=== PATIENT | female | born 1960 | race Caucasian/White ===

== ENCOUNTER 2022-11-17 13:58 | Outpatient (REF) | payer MEDICAID, SELFPAY | END 2022-11-17 13:59 | disposition home or self-care (01) | LOC: HO.BBR 13:58 | PROVIDERS: Visit Provider Internal Medicine Hematology & Oncology | DX: Z13.89 Encounter for screening for other disorder (principal) ==

== ENCOUNTER 2022-11-24 15:01 | Outpatient (REF) | payer MEDICAID, SELFPAY | END 2022-11-24 15:02 | disposition home or self-care (01) | LOC: HO.BBR 15:01 | PROVIDERS: Visit Provider Internal Medicine Hematology & Oncology | DX: Z13.89 Encounter for screening for other disorder (principal) ==

== ENCOUNTER 2022-12-02 13:07 | Outpatient (REF) | payer MEDICAID, SELFPAY | END 2022-12-02 13:08 | disposition home or self-care (01) | LOC: HO.BBR 13:07 | PROVIDERS: Visit Provider Internal Medicine Hematology & Oncology | DX: Z13.89 Encounter for screening for other disorder (principal) ==

== ENCOUNTER 2022-12-22 15:06 | Outpatient (REF) | payer MEDICAID, SELFPAY | END 2022-12-22 15:07 | disposition home or self-care (01) | LOC: HO.BBR 15:06 | PROVIDERS: Visit Provider Internal Medicine Hematology & Oncology | DX: Z13.89 Encounter for screening for other disorder (principal) ==

== ENCOUNTER 2023-01-04 16:12 | Outpatient (REF) | payer MEDICAID, SELFPAY | END 2023-01-04 16:13 | disposition home or self-care (01) | LOC: HO.BBR 16:12 | PROVIDERS: Visit Provider Internal Medicine Hematology & Oncology | DX: Z13.89 Encounter for screening for other disorder (principal) ==

== ENCOUNTER 2023-01-12 14:05 | Outpatient (REF) | payer MEDICAID, SELFPAY | END 2023-01-12 14:06 | disposition home or self-care (01) | LOC: HO.BBR 14:05 | PROVIDERS: Visit Provider Internal Medicine Hematology & Oncology | DX: Z13.89 Encounter for screening for other disorder (principal) ==

== ENCOUNTER 2023-02-17 15:06 | Outpatient (REF) | payer MEDICAID, SELFPAY | END 2023-02-17 15:07 | disposition home or self-care (01) | LOC: HO.BBR 15:06 | PROVIDERS: Visit Provider Internal Medicine Hematology & Oncology | DX: Z13.89 Encounter for screening for other disorder (principal) ==

== ENCOUNTER 2023-03-05 14:00 | Outpatient (REF) | payer MEDICAID, SELFPAY | END 2023-03-05 14:01 | disposition home or self-care (01) | LOC: HO.BBR 14:00 | PROVIDERS: Visit Provider Internal Medicine Hematology & Oncology | DX: Z13.89 Encounter for screening for other disorder (principal) ==

== ENCOUNTER → 2023-03-05 14:54 | Outpatient (BNV) | payer MEDICAID, SELFPAY | PROVIDERS: PCP Physician Assistant Medical; Visit Provider Internal Medicine | DX: E83.110 Hereditary hemochromatosis (principal) | CPT/HCPCS: 99203; 99213; 99214; G2211 ==

== ENCOUNTER 2023-03-24 15:07 | Outpatient (REF) | payer MEDICAID, SELFPAY | END 2023-03-24 15:08 | disposition home or self-care (01) | LOC: HO.BBR 15:07 | PROVIDERS: PCP Physician Assistant Medical; Visit Provider Internal Medicine | DX: Z13.89 Encounter for screening for other disorder (principal) ==

== ENCOUNTER 2023-04-09 11:34 | Outpatient (REF) | payer MEDICAID, SELFPAY | END 2023-04-09 11:35 | disposition home or self-care (01) | LOC: HO.BBR 11:34 | PROVIDERS: PCP Physician Assistant Medical; Visit Provider Internal Medicine | DX: Z13.89 Encounter for screening for other disorder (principal) ==

== ENCOUNTER 2023-04-23 15:05 | Outpatient (REF) | payer MEDICAID, SELFPAY | END 2023-04-23 15:06 | disposition home or self-care (01) | LOC: HO.BBR 15:05 | PROVIDERS: PCP Physician Assistant Medical; Visit Provider Internal Medicine | DX: Z13.89 Encounter for screening for other disorder (principal) ==

== ENCOUNTER 2023-05-13 14:03 | Outpatient (REF) | payer MEDICAID, SELFPAY | END 2023-05-13 14:04 | disposition home or self-care (01) | LOC: HO.BBR 14:03 | PROVIDERS: PCP Physician Assistant Medical; Visit Provider Internal Medicine | DX: Z13.89 Encounter for screening for other disorder (principal) ==

== ENCOUNTER 2023-05-27 14:03 | Outpatient (REF) | payer MEDICAID, SELFPAY | END 2023-05-27 14:04 | disposition home or self-care (01) | LOC: HO.BBR 14:03 | PROVIDERS: PCP Physician Assistant Medical; Visit Provider Internal Medicine | DX: Z13.89 Encounter for screening for other disorder (principal) ==

== ENCOUNTER 2023-06-18 12:09 | Outpatient (REF) | payer MEDICAID, SELFPAY | END 2023-06-18 12:10 | disposition home or self-care (01) | LOC: HO.BBR 12:09 | PROVIDERS: PCP Physician Assistant Medical; Visit Provider Internal Medicine | DX: Z13.89 Encounter for screening for other disorder (principal) ==

== ENCOUNTER 2023-07-09 14:09 | Outpatient (REF) | payer MEDICAID, SELFPAY | END 2023-07-09 14:10 | disposition home or self-care (01) | LOC: HO.BBR 14:09 | PROVIDERS: PCP Physician Assistant Medical; Visit Provider Internal Medicine | DX: Z13.89 Encounter for screening for other disorder (principal) ==

== ENCOUNTER 2023-07-27 14:06 | Outpatient (REF) | payer MEDICAID, SELFPAY | END 2023-07-27 14:07 | disposition home or self-care (01) | LOC: HO.BBR 14:06 | PROVIDERS: PCP Physician Assistant Medical; Visit Provider Internal Medicine | DX: Z13.89 Encounter for screening for other disorder (principal) ==

== ENCOUNTER 2023-08-11 14:04 | Outpatient (REF) | payer MEDICAID, SELFPAY | END 2023-08-11 14:05 | disposition home or self-care (01) | LOC: HO.BBR 14:04 | PROVIDERS: PCP Physician Assistant Medical; Visit Provider Internal Medicine | DX: Z13.89 Encounter for screening for other disorder (principal) ==

== ENCOUNTER 2023-09-14 13:51 | Outpatient (REF) | payer MEDICAID, SELFPAY | END 2023-09-14 13:52 | disposition home or self-care (01) | LOC: HO.BBR 13:51 | PROVIDERS: PCP Physician Assistant Medical; Visit Provider Internal Medicine | DX: Z13.89 Encounter for screening for other disorder (principal) ==

== ENCOUNTER 2023-10-11 15:04 | Outpatient (REF) | payer MEDICAID, SELFPAY | END 2023-10-11 15:05 | disposition home or self-care (01) | LOC: HO.BBR 15:04 | PROVIDERS: PCP Physician Assistant Medical; Visit Provider Internal Medicine | DX: Z13.89 Encounter for screening for other disorder (principal) ==

== ENCOUNTER 2023-11-16 14:05 | Outpatient (REF) | payer MEDICAID, SELFPAY | END 2023-11-16 14:06 | disposition home or self-care (01) | LOC: HO.BBR 14:05 | PROVIDERS: PCP Physician Assistant Medical; Visit Provider Internal Medicine | DX: Z13.89 Encounter for screening for other disorder (principal) ==

== ENCOUNTER 2024-01-26 13:17 | Outpatient (REF) | payer MEDICAID, SELFPAY | END 2024-01-26 13:18 | disposition home or self-care (01) | LOC: HO.BBR 13:17 | PROVIDERS: PCP Physician Assistant Medical; Visit Provider Internal Medicine | DX: Z13.89 Encounter for screening for other disorder (principal) ==

== ENCOUNTER 2024-04-28 09:10 | Outpatient (REF) | payer MEDICAID, SELFPAY | END 2024-04-28 09:11 | disposition home or self-care (01) | LOC: HO.BBR 09:10 | PROVIDERS: PCP Physician Assistant Medical; Visit Provider Internal Medicine | DX: Z13.89 Encounter for screening for other disorder (principal) ==

== ENCOUNTER 2024-06-16 15:09 | Outpatient (REF) | payer MEDICAID, SELFPAY | END 2024-06-16 15:10 | disposition home or self-care (01) | LOC: HO.BBR 15:09 | PROVIDERS: Visit Provider Internal Medicine | DX: Z13.89 Encounter for screening for other disorder (principal) ==

== ENCOUNTER 2024-07-17 15:01 | Outpatient (REF) | payer MEDICAID, SELFPAY ==
--- OUTSIDE RECORDS SUMMARY | 2024-07-17 17:37 | XMS_ITS | Clinical Summary ---
Author Organization [employer] Address [address] [facility] 7t [place] [address] Care Team Providers Care Naval Engineer Name Role Phone Unavailable Primary Care Provider Unavailabl e Allergies Active Allergy Reactions Criticality Noted Date Comments Latex Hives 09/23/2022 Medications No known medications Active Problems Problem Noted Date Diagnosed Date Dental caries 09/23/2022 Dental abscess 09/23/2022 Social History Tobacco Use Types Packs/Day Years Used Date Smoking Tobacco: Never Passive Smoke Exposure: Never Smokeless Tobacco: Never Tobacco Cessation:Counseling Given: No Alcohol Use Standard Drinks/Week Comments Never 0 (1 standard drink = 0.6 oz pur e alcohol) Comments Unknown Sex and Gender Information Value Date Recorded Sex Assigned at Female 09/23/2022 8:43 AM EDT Legal Sex Female 8:42 AM EDT Gender Identity Female 09/23/2022 8:43 AM EDT Sexual Orientation Don't know 09/23/2022 8: 43 AM EDT Plan of Treatment Health Maintenance Due Date Last Done Comments CT Colonography 1962 Colonoscopy 1962 Colorectal Cancer Screening 1962 Dental Oral Exam 1962 Dental Prophylaxis 1962 Dental X-Ray: Bitewings 1962 Depression Screening 1962 FIT DNA/Cologuard 1962 FIT 1962 FOBT 1962 HIV Screening 1962 SDOH Screening 1962 Sigmoidoscopy 1962 Alcohol/Substance Use Screening 1974 Hepatitis C Screening 01/12/1980 Pap Smear 1983 Cervical Cancer Screening 01/12/1992 HPV/Cotest 01/12/1992 Mammogram 2002 Zoster Vaccines (1 of 2) 01/12/2012 Pneumococcal Vaccine: 50+ Years (2 of 2 - PCV) 11/25/2021 11/25/2020 RSV Patients and Patients Aged 60 years or older (1 - Risk 60-74 years 1-dose series) 2022 Tobacco Screening 09/24/2023 09/23/2022 COVID-19 Vaccine ( - season) 2023 01/06/2022, 08/20/2021, 02/13/2021, Additional history exists Influenza Vaccine (#1) 2023 , 03/19/2018, 02/12/2011, Additional history exists DTaP/Tdap/Td Vaccines (2 - Td or Tdap) 08/28/2025 08/29/2015 Dental X-Ray: Full Mouth 09/24/2025 09/23/2022 HIB Vaccines Aged Out No longer eligi ble based on patient's age to complete this topic HPV Vaccines Aged Out No longer eligi ble based on patient's age to complete this topic Hepatitis A Vaccines Aged Out No long er eligible based on patient's age to complete this topic Hepatitis B Vaccines Aged Out No long er eligible based on patient's age to complete this topic IPV Vaccines Aged Out No longer eligi ble based on patient's age to complete this topic Meningococcal Vaccine Aged Out No anam edgardo eligible based on patient's age to complete this topic RSV under 20 months Aged Out No longe r eligible based on patient's age to complete this topic Rotavirus Vaccines Aged Out No longer eligible based on patient's age to complete this topic Procedures Procedure Name Priority Date/Time Associated Diagnosis Comments PANORAMIC RADIOGRAPHIC IMAGE Routine 09/23/2022 11:30 AM EDT from Last 3 Months or Most Recently Relevant to Health Maintenance Insurance [facility] MEDICAID STAND ADULT
--- OUTSIDE RECORDS SUMMARY | 2024-07-17 17:37 | XMS_ITS | Encounter Summary ---
Author Organization [employer] Address 75 [facility] 7t [place] [address] Care Team Providers Care Homeopathic Doctor Name Role Phone Unavailable Primary Care Provider Unavailabl e Reason for Visit * Reason Onset Date Comments medical clearance 10/20/2022 Encounter Details Date Type Department Care Team (Late st Contact Info) Description 10/20/2022 Telephone C ADULT DENTAL [address] [place], [place] [phone] Eric Mena DDS [address] [place], [place] [phone] medical clearance Social History Tobacco Use Types Packs/Day Years Used Date Smoking Tobacco: Never Passive Smoke Exposure: Never Smokeless Tobacco: Never Alcohol Use Standard Drinks/Week Comments Never 0 (1 standard drink = 0.6 oz pur e alcohol) Comments Unknown Sex and Gender Information Value Date Recorded Sex Assigned at Female 09/23/2022 8:43 AM EDT Legal Sex Female 8:42 AM EDT Gender Identity Female 09/23/2022 8:43 AM EDT Sexual Orientation Don't know 09/23/2022 8: 43 AM EDT COVID-19 Exposure Response Date Recorded In the last 10 days, have yo u been in contact with someone who was confirmed or suspected to have Coronavirus/COVID-19? No / Unsure 09/23/2022 11:14 AM EDT documented as of this encounter Miscellaneous Notes * Telephone Encounter - Madison Tipton - 10/26/2022 2:34 PM EDT Alka from Dr. Devine office calling in questioning what the situation is with patient medical clearance seeing that they explained they sent in a new one with the information needed. I did explain that a medical clearance was still not scanned in the chart other than the first one that had beensent in and that the first one sent in was not fully completed. Shikha had called in a little while before and it was explained to her that she had been referred out perr provider due to her condition. She contacted Dr. Devine office asking them why they hadn't sent over the medical clearance and they contacted us asking what was going on with it not being clear to the patient. The medical clearance, if they sent another one is not scanned in so on our end there is nothing more we can say on our end at [facility]. She did want to speak directly to the office but upon calling manager front it was recommended for us to speak with provider. They would like to hear from you regarding patient case. Dr. Devine office [phone] Alka Galeana * Telephone Encounter - Madison Tipton - 10/22/2022 2:05 PM EDT Pt called in to inform 2 days a new medical clearance form should have been sent in from provider .Pt checking in if it has been received ? And requesting a new antibiotic while they wait for their appt . * Telephone Encounter - Lizbeth Astudillo - 10/20/2022 2:18 PM EDT Shikha Kaufmanramilanadeen 1960 Patient called in and stated bar staff could not read medicalclearance and asked if it can be resent I did fax it over again and patient also stated that she isstill having pain and stated that medication that was given to her is not helping and wanted to know if she can get something else sent to the pharmacy please advise . documented in this encounter Plan of Treatment Not on file documented as of this encounter Visit Diagnoses Not on filedocumented in this encounter
--- OUTSIDE RECORDS SUMMARY | 2024-07-17 17:37 | XMS_ITS | Encounter Summary ---
Author Organization [employer] Address 75 [facility] 7t [place] [address] Care Team Providers Care Rotary Drier Operator Name Role Phone Unavailable Primary Care Provider Unavailabl e Reason for Visit * Reason Onset Date Comments Appointment 09/23/2022 Encounter Details Date Type Department Care Team ([facility] st Contact Info) Description 09/23/2022 Telephone [facility] ADULT DENTAL [address] [place] [address] Eric Mena DDS [address] [place], [place] [phone] Appointment Social History Tobacco Use Types Packs/Day Years [...] encounter Miscellaneous Notes * Telephone Encounter - Lizbeth Astudillo - 10/07/2022 11:35 AM EDT Shikha Nelson 1960 Patient called in and stated that the Tylenol is not helping forthe pain and wanted to know if something else can be sent to the pharmacy please advise. * Telephone Encounter - Lizbeth Astudillo - 09/23/2022 12:34 PM EDT Shikha corrales 1960 patient was seen on 09/23/2022 and was given ibuprofen 600 and patient cant take it because of bleeding disorder please advise for something else documented in this encounter Plan of Treatment Not on file documented as of this encounter Visit Diagnoses Not on filedocumented in this encounter
== END 2024-07-17 15:02 | disposition home or self-care (01) ==
LOC: HO.BBR 15:01
PROVIDERS: Visit Provider Internal Medicine
DX: Z13.89 Encounter for screening for other disorder (principal)

== ENCOUNTER 2024-08-31 07:49 | Outpatient (REF) | payer MEDICAID, SELFPAY ==
--- OUTSIDE RECORDS SUMMARY | 2024-08-31 07:51 | XMS_ITS | Encounter Summary ---
Author Organization [employer] Address [address] [facility] 7t [place] [address] Care Team Providers Care Metalsmith Name Role Phone Unavailable Primary Care Provider Unavailabl e Reason for Visit * Reason Onset Date Comments Appointment 09/23/2022 Encounter Details Date Type Department Care Team ([facility] st Contact Info) Description 09/23/2022 Telephone [facility] ADULT DENTAL [address] [place] [address] rEic Mena DDS [address] [place], [place] [phone] Appointment Social History Tobacco Use Types Packs/Day [...]
[2024-09-05 19:33] LABS: Testosterone, Free 1.2 pg/mL (0.1-6.4); Testosterone, Total 16 ng/dL (2-45)
== END 2024-08-31 07:50 | disposition home or self-care (01) ==
LOC: HO.LAB 07:49
PROVIDERS: Visit Provider Physician Assistant Medical
DX: N95.1 Menopausal and female climacteric states (principal)
CPT/HCPCS: 36415; 84402; 84403

== ENCOUNTER 2024-10-12 15:03 | Outpatient (REF) | payer MEDICAID, SELFPAY ==
--- OUTSIDE RECORDS SUMMARY | 2024-10-12 15:09 | XMS_ITS | Encounter Summary ---
Author Organization [employer] Address [address] [facility] 7t [place] [address] Care Team Providers Care Hair Preparer Name Role Phone Unavailable Primary Care Provider Unavailabl e Reason for Visit * Reason Onset Date Comments Appointment 09/23/2022 Encounter Details Date Type Department Care Team ([facility] st Contact Info) Description 09/23/2022 Telephone [facility] ADULT DENTAL [address] [place] [address] Eric Mena DDS [address] [place], [place] [phone] Appointment Social History Tobacco Use Types Packs/Day [...]
== END 2024-10-12 15:04 | disposition home or self-care (01) ==
LOC: HO.BBR 15:03
PROVIDERS: PCP Physician Assistant Medical; Visit Provider Internal Medicine
DX: Z13.89 Encounter for screening for other disorder (principal)

== ENCOUNTER 2024-12-01 15:41 | Outpatient (AMB) | payer MEDICAID, SELFPAY ==
--- OUTSIDE RECORDS SUMMARY | 2024-12-01 15:44 | XMS_ITS | Encounter Summary ---
Author Organization [facility] Address [address] [place] [address] Phone Care Team Providers Care Skein Yarn Dyer Helper Name Role Phone Cabrera Gaston MD Primary Care Provider Cabrera Gaston MD Unavailable [phone] Irlanda Barber DPM Unavailable Unavailable Edith Church MD Unavailable [phone] Nicolás Salter MD Unavailable [phone] Silvio Olivares Artem DO Unavailable [phone] Becca Harley Unavailable [phone] Cabrera Gaston MD Unavailable [phone] Becca Harley Primary Care Provider [phone] Jignesh Akbar MD Unavailable Encounter Details Date Type Department Care Team (Late st Contact Info) Description 06/07/2018 Transcribe [facility] [address] [place], [place] [phone] Jing Santos PA [address] [place], [place] [phone] [email or web address] Acute severe exacerbation of asthma (Primary Dx) Social History Tobacco Use Types Packs/Day Years Used Date Smoking Tobacco: Never Assessed Comments Unknown Sex and Gender Information Value Date Recorded Sex Assigned at Not on file Legal Sex Female 9:45 PM EDT Gender Identity Female 02/02/2023 4:51 PM EDT Sexual Orientation Straight 02/02/2023 4: 51 PM EDT documented as of this encounter Plan of Treatment Not on file documented as of this encounter Visit Diagnoses Diagnosis Acute severe exacerbation of asthma- Primary documented in this encounter Care Teams Skein Yarn Dyer Helper Relationship Specialty Start Date End Date Cabrera Gaston MD [email or web address] PCP - General 01/19/17 10/06/22 Becca Harley PA [address] [place] [address] PCP - General Physician Risk Management Manager 10/07/22 Cabrera Gaston MD [email or web address] Historical LMR Provider 01/19/17 Irlanda Barber DPM [address] [place] [address] Historical LMR Provider 01/19/1704/12/21 Edith Church MD [address] [place] [address] Historical LMR Provider 01/19/17 2 Nicolás Salter MD [address] [place] [id number] [email or web address] Historical LMR Provider 01/19/17 04/12/21 Silvio Olivares DO [address] [place] [address] [email or web address] Primary Oncologist Hematology and Oncology 01/19/17 Becca Harley PA [address] [place] [address] [place] [address] Service Technician 08/17/18 Cabrera Gaston MD [address] [place] [address] [email or web address] Insurance Assigned Provider 11/06/18 12/12/22 Jignesh Akbar MD [address] [address] [email or web address] Primary Oncologist Hematology and Oncology 12/28/22 documented as of this encounter Additional Source Comments The information contained in this document represents components of the legal health record. It is not the complete legal health record.[facility]
--- OUTSIDE RECORDS SUMMARY | 2024-12-01 15:44 | XMS_ITS | Encounter Summary ---
Author Organization [employer] Address [address] [facility] 7t [place] [address] Care Team Providers Care Seed Corn Manager Production Name Role Phone Unavailable Primary Care Provider Unavailabl e Reason for Visit * Reason Onset Date Comments Appointment 09/23/2022 Encounter Details Date Type Department Care Team ([facility] st Contact Info) Description 09/23/2022 Telephone [facility] ADULT DENTAL [address] [place] [address] Eric Mena DDS [address] [place], [place] [phone] Appointment Social History Tobacco Use Types Packs/Day [...]
--- OUTSIDE RECORDS SUMMARY | 2024-12-01 15:44 | XMS_ITS | Encounter Summary ---
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 Procedures Adult Echo TTE Becca Harley PA [address] [place] [address] Phone: tel: fax: Referral ID Status Reason Start Date Expiration Date V isits Requested Visits Authorized [id number] New Request 08/30/2024 1 1 Encounter Details Date Type Department Care Team (Latest Contact Info) Description 08/30/2024 Transcribe Orders Virtual Department [address] [place] [address] Becca Harley PA [address] [place] [address] Hypermobile Tati-Danlos syndrome (Primary Dx) Social History Tobacco Use Types Packs/Day Years Used Date Smoking Tobacco: Former Smokeless Tobacco: Never Comments:Smoked very little (1-2 cigarettes/day) for abaout 2 years Alcohol Use Standard Drinks/Week Comments Yes 0 (1 standard drink = 0.6 oz pur e alcohol) occasionally Education Answer Date Recorded Are you interested in more education? Not on diomedes e 07/31/2022 Are you concerned about learning? Not on file 07/31/2022 No 07/31/2022 No 07/31/2022 Digital Access Answer Date Recorded No 08/29/2022 No 08/29/2022 Reliable internet access at home? Not on file 08/29/2022 Device with a working camera? Not on file Comments No Sex and Gender Information Value Date Recorded Sex Assigned at Not on file Legal Sex Female 9:45 PM EDT Gender Identity Female 02/02/2023 4:51 PM EDT Sexual Orientation Straight 02/02/2023 4: 51 PM EDT documented as of this encounter Plan of Treatment Scheduled Orders Name Type Priority Associated Diagnoses Orde r Schedule Adult Echo TTE Echocardiography Routine Hypermobile Tati-Danlos syndrome Expected: 08/30/2024, Expires: 08/30/2025 documented as of this encounter Visit Diagnoses Diagnosis Hypermobile Tati-Danlos syndrome- Primary documented in this encounter Care Teams Jig Borer Relationship Specialty Start Date End Date Becca Harley PA [address] [place] [address] PCP - General Physician Steel Welder 10/07/22 Cabrera Gaston MD [email or web address] Historical LMR Provider 01/19/17 Silvio Olivares DO [address] [place] [address] [email or web address] Primary Oncologist Hematology and Oncology 01/19/17 Becca Harley PA [address] [place] [address] [place] [address] Vegetable Packer 08/17/18 Jignesh Akbar MD [address] [place] [address] [email or web address] Primary Oncologist Hematology and Oncology 12/28/22 documented as of this encounter Additional Source Comments The information contained in this document represents components of the legal health record. It is not the complete legal health record.[facility]
--- OUTSIDE RECORDS SUMMARY | 2024-12-01 15:44 | XMS_ITS | Encounter Summary ---
Author Organization [facility] Address [address] [place] [address] Phone Care Team Providers Care Manufacturing Plant Technician Name Role Phone Cabrera Gaston MD Primary Care Provider [phone] Cabrera Gaston MD Unavailable [phone] Irlanda Barber DPM Unavailable Unavailable Edith Church MD Unavailable [phone] Nicolás Salter MD Unavailable [phone] Silvio Olivares Artem DO Unavailable [phone] Becca Harley Unavailable [phone] Cabrera Gaston MD Unavailable [phone] Becca Harley Primary Care Provider [phone] Jignesh Akbar MD Unavailable Encounter Details Date Type Department Care Team (Latest Contact Info) Description 06/07/2018 Transcribe Orders Virtual Department [address] [place], [place] [phone] Becca Harley PA [address] [place] [address] Asthma with acute exacerbation, unspecified asthma severity, unspecified whether persistent (Primary Dx) Social History Tobacco Use Types [...] on file documented as of this encounter Results * Pulmonary Function Test Reason for Exam: Asthma; Type of PFT Test: Spirometry with bronchodilator, Spirometry while seated and supine, Lung Volumes, DLCO; Performing Location: [facility] (07/18/2018 1:43 PMEDT) FEV1 liters FVC liters FEV1/FVC % TLC liters DLCO ml/mmHg sec Anatomical Region Laterality Modality Other Impressions 07/18/2018 1:43 PM EDT PULMONARY FUNCTION STUDIES Full pulmonary function studies were performed on this 58 y.o. year-old female for evaluation of asthma. Review of the medical record reveals that the patient has a minimal prior smoking history. Prior pulmonary function studies are not available for comparison. SPIROMETRY: The FEV1 is normal at 2.48 L or 101 % predicted. The FVC is normal at 3.98 L or 121 % predicted. The FEV1/FVC ratio is impaired at there is no significant [id number] %. After the administration of a bronchodilator agent, there is no significant change. FLOW-VOLUME LOOPS: Evaluation of the flow-volume loops reveals mild flattening in the peak expiratory as well as inspiratory flows with no change following bronchodilator administration. LUNG VOLUME MEASUREMENTS BY PLETHYSMOGRAPHY: The total lung capacity is mildly elevated at 6.15 L or 120 % predicted. The functional residual capacity is elevated at 3.97 L or 129 % predicted. Residual volume normal at 2.17 L or 115% predicted. Airway resistance measurements mildly elevated. DIFFUSION CAPACITY: The diffusion capacity is normal at 22.2 mL/mmHg sec or 116 % predicted. COMPARISON TO PRIOR STUDIES: None available. Resting oxygen saturation is 96 % on room air. IMPRESSION: Abnormal pulmonary function studies with mild fixed airflow obstruction with mild hyperinflation but preserved diffusion capacity. No bronchodilator response seen. Given flow volume loop appearance, findings may suggest chronic airway remodeling versus alternative diagnosis as a cause of physiologic COPD. Clinical and radiographic correlation advised. Becca FU PFT ORDERABLES Final Resu lt documented in this encounter Visit Diagnoses Diagnosis Asthma with acute exacerbation, unspecified asthma severity, unspecified whether persistent- Primary Asthma with acute exacerbation, unspecified asthma severity, unspecified whether persistent documented in this encounter Care Teams Manufacturing Plant Technician Relationship Specialty Start Date End Date Cabrera Gaston MD [email or web address] PCP - General 01/19/17 10/06/22 Becca Harley PA [address] [place] [address] PCP - General Physician Cdl Dedicated Truck Driver 10/07/22 Cabrera Gaston MD [email or web address] Historical LMR Provider 01/19/17 Irlanda Barber DPM [address] [place] [address] Historical LMR Provider 01/19/1704/12/21 Edith Church MD [address] [place] [address] Historical LMR Provider 01/19/17 2 Nicolás Salter MD [address] [place] [address] [email or web address] Historical LMR Provider 01/19/17 04/12/21 Silvio Olivares DO [address] [place] [address] [email or web address] Primary Oncologist Hematology and Oncology 01/19/17 Becca Harley PA [address] [place] [address] [place] [address] Supervisor Paint Roller Covers 08/17/18 Cabrera Gaston MD [address] [place] [address] [email or web address] Insurance Assigned Provider 11/06/18 12/12/22 Jignesh Akbar MD [address] [address] [email or web address] Primary Oncologist Hematology and Oncology 12/28/22 documented as of this encounter Additional Source Comments The information contained in this document represents components of the legal health record. It is not the complete legal health record.[facility]
--- OUTSIDE RECORDS SUMMARY | 2024-12-01 15:44 | XMS_ITS | Clinical Summary ---
Author Organization [employer] Address 75 [facility] 7t [place] [address] Care Team Providers Care Business Management Specialist Name Role Phone Unavailable Primary Care Provider [...] Screening 1960 SDOH Screening 1960 Sigmoidoscopy 1960 Disability Screening 1962 Alcohol/Substance Use Screening 1974 Hepatitis C Screening 01/12/1980 Pap Smear 1983 Cervical Cancer Screening 01/12/1992 HPV/Cotest 01/12/1992 Mammogram 2002 Zoster Vaccines (1 of 2) 01/12/2012 Pneumococcal Vaccine: 50+ Years (2 of 2 - PCV) 11/25/2021 11/25/2020 RSV Patients and Patients Aged 60 years or older (1 - Risk 60-74 years 1-dose series) 2022 Tobacco Screening 09/24/2023 09/23/2022 COVID-19 Vaccine ( season) 2023 01/06/2022, 08/20/2021, 02/13/2021, Additional history exists Influenza Vaccine (#1) 2024 , 03/19/2018, 02/12/2011, Additional history exists DTaP/Tdap/Td [...] patient's age to complete this topic Meningococcal B Vaccine Aged Out No l onger eligible based on patient's age to complete [...] Most Recently Relevant to Health Maintenance Insurance [facility] MEDICAID STAND ADULT
--- OUTSIDE RECORDS SUMMARY | 2024-12-01 15:44 | XMS_ITS | Encounter Summary ---
Author Organization [employer] Address 75 [facility] 7t [place] [address] Care Team Providers Care Spanisher Name Role Phone Unavailable Primary Care Provider Unavailabl e Reason for Visit * Reason Onset Date Comments medical clearance 10/20/2022 Encounter Details Date Type Department Care Team (Late st Contact Info) Description 10/20/2022 Telephone C ADULT DENTAL [address] [place], [place] [phone] Eric Mena DDS [address] [place], [place] [phone] medical clearance Social History Tobacco Use Types [...] we can say on our end at [facility]. She did want to speak directly to the office but upon calling front office assistant it was recommended for us to speak with provider. They would like to hear from you regarding patient case. Dr. Devine office [phone] Alka Galeana * Telephone Encounter - Madison [...] Kaufmanramilanadeen 1960 Patient called in and stated information engineer could not read medicalclearance and asked if [...]
--- OUTSIDE RECORDS SUMMARY | 2024-12-01 15:44 | XMS_ITS | Clinical Summary ---
Author Organization [facility] Address [address] [place] [phone] Phone Care Team Providers Care Group Social Worker Name Role Phone Cabrera Gaston MD Unavailable Silvio Olivares DO Unavailable [phone] Becca Harley Unavailable Becca Harley Primary Care Provider [phone] Jignesh Akbar MD Unavailable Allergies Active Allergy Reactions Criticality Noted Date Comments Animal Dander Unknown 11/25/2012 Banana Unknown 11/25/2012 Eucalyptus Containing Products Itching,Sneezing,Wh eezing 07/18/2018 Fexofenadine 11/25/2012 Other reaction(s): Unknown Grass Pollen Hives,Wheezing 07/18/2018 Latex 11/25/2012 Other reaction(s): hives Mold 11/25/2012 Other reaction(s): Unknown Other Sneezing,Wheezing 11/25/2012 Rice, corn, soy, seseme, celery, melon, all tree pollen Penicillin G Sodium 11/25/2012 Other reaction(s): rash Prednisone Nausea and/or Vomiting 11/25/2012 Other reaction(s): N+V, hives Ragweed Itching,Sneezing,Wh eezing 07/18/2018 Shellfish Containing Products 11/25/2012 Other reaction(s): Unknown Sulfamethoxazole 11/25/2012 Other reaction(s): rash Medications cyclosporine (RESTASIS) 0.05 % suspension Place 1 drop into each eye 2 (two) times a day. Active lifitegrast (XIIDRA OPHT) Apply to eye. Ac tive albuterol 90 mcg/actuation inhalerIndicati ons:Proair HFA Inhale 2 puffs into the lungs every 6 (six) hours as needed for wheezing. Indications: Proair HFA Active cholecalciferol (VITAMIN D3) 25 MCG (1,000 unit) tablet 1 tablet Active desmopressin (DDAVP) 10 mcg/spray (0.1 mL) solution INSTILL 1 SPRAY INTO THE NOSTRILS ONCE FOR 1 DOSE 5 mL 5 3 Active Additional Information Patient not taking.Reported on 09/11/2024 Active Problems Patient Care Coordination No te Formatting of this note migh t be different from the original. Height 162.9cm no shoes 10/07/2022 Problem Noted Date Diagnosed Date Moderate persistent asthma without complication 09/14/2018 Assessment & Plan (09/14/2018 1:44 PM EDT): Symptoms currently stable. Unfortunately unable to complete FeNO today. Given her concurrent allergic symptoms, would be a good candidate for montelukast, but she has not tolerated that medication in the past with urinary frequency. She may be a candidate for xolair. We will check a CBC with diff today as well as total IgE to assess further. Given her rhinitis/sinusitis, will also check ANCAs. She will schedule a six week nurse visit for asthma education and three month follow up visit. Allergic rhinitis 09/14/2018 Assessment & Plan (09/14/2018 1:46 PM EDT): Intolerant of a number of medications, including antihistamines. Will schedule allergy testing. Check CBC with diff and IgE with consideration for xolair. Von Willebrand disease 08/17/2018 Overview (08/17/2018): Von Willebrand's disease diagnosed by Dr. Guerra many years ago responsive to DDAVP. Iron deficiency anemia 08/17/2018 Overview (08/17/2018): Iron deficiency anemia secondary to heavy menses status post uterine ablation approximately 2013 Other hemochromatosis 08/17/2018 Overview (08/17/2018): Iron deficiency anemia secondary to heavy menses status post uterine ablation approximately 2013. In reviewing iron studies dating back to 2010 ferritin has always been very mildly elevated just over the normal of 150. Patient represented in August 2018 ferritin measuring 334, transferrin saturation 94%, TIBC 236, serum iron 222 Encounters Date Type Department Care Team Description 09/11/2024 3:30 PM EDT Office Visit [facility] [address] [place] [address] Nicolás Salter MD Encounter for annual routine gynecological examination (Primary Dx); Breast cancer screening by mammogram; Screening for cervical cancer; Decreased libido; Menopausal state from Last 3 Months Immunizations Immunization Administration Dates Next Due COVID-19 (Pre-01/25) Pfizer Vaccine, mRNA, PF ,07/14/2020 INFLUENZA, SPLIT VIRUS, TRIVALENT W/ PRESERVATIV E IM 02/12/2011,04/11/2010 Influenza Quadrivalent Preservative Free IM 03/05 Tdap 08/29/2015 Family History Medical History Relation Comments Von Willebrand disease Mother Relation Status Comments Mother Social History Tobacco Use Types Packs/Day Years Used Date Smoking Tobacco: Former Smokeless Tobacco: Never Comments:Smoked very little (1-2 cigarettes/day) for abaout 2 years Alcohol Use Standard Drinks/Week Comments Not Currently 0 (1 standard drink = 0.6 oz pur e alcohol) Education Answer Date Recorded Are you interested [...] Orientation Straight 02/02/2023 4: 51 PM EDT Last Filed Vital Signs Vital Sign Reading Time Taken Comments Blood Pressure 104/78 09/11/2024 4:02 PM EDT Pulse 91 01/06/2023 2:24 PM EDT Temperature 36.8 C (98.2 F) 01/06/2023 2:24 PM EDT Respiratory Rate - - Oxygen Saturation 97% 01/06/2023 2:24 PM EDT Inhaled Oxygen Concentration - - Weight 52.5 kg (115 lb 12.8 oz) 01/06/2023 2:24 PM EDT Height 162.9 cm (5' 4.13 ) 01/06/2023 2:24 PM ED T Body Mass Index 19.79 01/06/2023 2:24 PM EDT Plan of Treatment Health Maintenance Due Date Last Done Comments DEPRESSION SCREENING 1974 SMOKING Hx and SMOKELESS TOBACCO SCREENING 1975 HEPATITIS C SCREENING 01/12/1980 HIV ONE-TIME SCREENING (18-65 YEARS) 01/12/1980 MAMMOGRAM 2002 COLOGUARD 2007 COLONOSCOPY 2007 COLORECTAL CANCER SCREENING 2007 FIT TEST 2007 FOBT 2007 SIGMOIDOSCOPY 2007 VIRTUAL COLONOSCOPY 2007 PNEUMOCOCCAL VACCINES (50+ years) (2 of 2 - PCV) 11/25/2021 11/25/2020 RSV VACCINE (1 - Risk 60-74 years 1-dose series) 2022 PAP SMEAR 11/26/2023 11/25/2020 ZOSTER VACCINES (2 of 2) 07/07/2024 05/12/2024 Adult Td,Tdap Booster 08/28/2025 08/29/2015 LIPID PANEL 04/03/2027 04/03/2022 COVID-19 VACCINE Completed 12/09/2023, , 01/06/2022, Additional history exists HEPATITIS A VACCINES Aged Out No long er eligible based on patient's age to complete this topic HIB VACCINES Aged Out No longer eligi ble based on patient's age to complete this topic MENINGOCOCCAL VACCINES (ACWY) Aged Out No longer eligible based on patient's age to complete this topic MENINGOCOCCAL VACCINES (B) Aged Out N o longer eligible based on patient's age to complete this topic Medical Devices Not on file Procedures Procedure Name Priority Date/Time Associated Diagnosis Comments PAP TEST Routine 11/25/2020 12:00 AM EDT from Last 3 Months or Most Recently Relevant to Health Maintenance Results * Pap Smear (11/25/2020 12:00 AM EDT) 11/25/2020 11/26/2020 8:5 0 AM EDT Narrative SEE NARRATIVE - 11/28/2020 2:16 PM EDT [address] [address] Manager Food Beverage: Jennifer Partida MD PATIENT INTAKE REPRESENTATIVE Cytology Report FINAL DIAGNOSIS A. PAP SMEAR (SUREPATH) CE: SPECIMEN ADEQUACY: Satisfactory for evaluation; transformation zone present. INTERPRETATION: NEGATIVE FOR INTRAEPITHELIAL LESION OR MALIGNANCY. Electronically Signed Out By: GAGE Duff(ASCP) GAGE Johnson(ASCP) The Pap test is a screening test primarily for squamous cancers and precursors and has associated false-negative and false-positive results. New technologies such as liquid-based preparations may decrease but will not eliminate all false-negative results. Regular sampling and follow-up of unexplained clinical signs and symptoms are recommended to minimize false negative results. PROCEDURES/ADDENDA HPV Testing (Requested) Ordered Date: 11/26/2020 A. PAP SMEAR (SUREPATH) CE: Human Papilloma Virus Test Negative for high-risk human papillomavirus types 16, 18, 45 and the Other high risk probe set (Includes 31, 33, 35, 39, 51, 52, 56, 58, 59, 66, 68) by atokore Onclarity HR-HPV analysis. Clinical correlation is advised. This HPV test was performed at [facility], [address] [place] [address]. This test has been FDA approved for SurePath cervical cytology specimens. The accuracy and precision of this test for all other specimen sources has been verified in the Cytopathology Laboratory of the [facility] and has not been cleared or approved by the U.S. Food and Drug Administration. Clinical correlation is advised. CLINICAL HISTORY Date of Last Menstrual Period: Not Provided Menstrual History: Unknown Other Clinical Conditions: Screening Pap SPECIMEN SOURCE A: PAP SMEAR (SUREPATH) CE Patient Name: SHIKHA NELSON : 1960 (Age: 60) Sex: F Institution: [facility] Location: [facility] Date of Collection: 11/25/2020 Date of Reported: 11/28/2020 14:16 Results to: Becca Harley PAC Becca FU CYTOLOGY ORDERABLES Final Result SEE NARRATIVE from Last 3 Months or Most Recently Relevant to Health Maintenance Insurance [facility] [place] [id number] [facility] [place] [id number] [facility] [phone] [facility] Care Teams Group Social Worker Relationship Specialty Start Date End Date Becca Harley PA [address] [place] [phone] PCP - General Physician Demolition Hammer Operator 10/07/22 Cabrera Gaston MD [email or web address] Historical LMR Provider 01/19/17 Silvio Olivares DO [address] [place] [address] [email or web address] Primary Oncologist Hematology and Oncology 01/19/17 Becca Harley PA [address] [place] [address] [place] [phone] Breeder Hen Service Technician 08/17/18 Jignesh Akbar MD [address] [address] [email or web address] Primary Oncologist Hematology and Oncology 12/28/22 Additional Source Comments The information contained in this document represents components of the legal health record. It is not the complete legal health record.[facility]
--- NOTE | 2024-12-01 15:46 | A.OFFVIS_ITS ---
Vital Signs 12/01/24 15:49 Height 5 ft 4 in Weight 112 lb BMI 19.2 BP 128/70 Blood Pressure Location Rt brachial Position Sitting Pulse 82 Pulse Source Pulse Oximeter Pulse Oximetry (%) 94 Oxygen Delivery Method Room Air Intake Visit Reasons: colo screening Intake Note: New pt for initial colo. Hx of negative cologuards per pt. CC; Pt denies any GI sx or concerns at this time. Pt denies any FMHx. Farm Product Purchaser Required: No Accompanied by: Self / Same As Patient Allergies ibuprofen Allergy (Severe, Verified 01/26/24 14:44) Unknown naproxen (From Aleve) Allergy (Severe, Verified 01/26/24 14:44) Unknown prednisone Allergy (Severe, Verified 01/26/24 14:44) Vomiting shellfish derived Allergy (Severe, Verified 01/26/24 14:44) Anaphylaxis animal dander Allergy (Intermediate, Verified 01/26/24 14:44) Sneezing latex Allergy (Intermediate, Verified 01/26/24 14:44) Unknown soy Allergy (Intermediate, Verified 01/26/24 14:44) Gastrointestinal Upset tree nut Allergy (Intermediate, Verified 01/26/24 14:44) Hives banana Allergy (Mild, Verified 01/26/24 14:44) Gastrointestinal Upset celery Allergy (Mild, Verified 01/26/24 14:44) Gastrointestinal Upset corn Allergy (Mild, Verified 01/26/24 14:44) Hives fexofenadine (From Dolores) Allergy (Mild, Verified 01/26/24 14:44) Unknown mite-Dermatophagoides farinae, luigi (dust mite - [place]) Allergy (Mild, Verified 01/26/24 14:44) Itching mold Allergy (Mild, Verified 01/26/24 14:44) Sneezing mushroom Allergy (Mild, Verified 01/26/24 14:44) Gastrointestinal Upset pollen extracts Allergy (Mild, Verified 01/26/24 14:44) Sneezing potato Allergy (Mild, Verified 01/26/24 14:44) Gastrointestinal Upset ragweed pollen Allergy (Mild, Verified 01/26/24 14:44) Sneezing rice Allergy (Mild, Verified 01/26/24 14:44) Gastrointestinal Upset sesame seed Allergy (Mild, Verified 01/26/24 14:44) Hives HPI HPI colo screening: Details: 64 year old? female with past medical history of hemochromatosis, Von Willebrand's disease, asthma, COPD, multiple food allergies, benign paroxysmal vertigo, seasonal allergies is here today for pre colonoscopy screening.? Patient was sent to us by her PCP.? This is her first colonoscopy screening.? Pa kirsten had negative Cologuard in the past. Patient denies any gastrointestinal symptoms in the past or at present.? Patient reports that her mom was diagnosed with colon cancer in her early 50s. Patient reports that her mom was drinking alcohol and not living healthy lifestyle. Patient any denies history of difficulty with sedation or anesthesia in the past.? Negative for history of sleep apnea.? Denies any history of cardiac, renal, pulmonary, or hepatic disease.?? No history of infectious? diseases like hepatitis A, B, C, HIV or tuberculosis.? Patient is not on any anticoagulation [facility] Medical History Chronic paronychia of toe History of fracture of hip Hereditary hemochromatosis (~12/21/22) Benign paroxysmal positional vertigo High serum ferritin (~07/18/18) Allergy to shellfish (~04/01/20) Eczema COPD (chronic obstructive pulmonary disease) (~07/22/18) Asthma Seasonal allergic rhinitis (~08/05/16) Benign paroxysmal positional vertigo Migraine Von Willebrand disease Surgical History History of endometrial ablation History of D&C History of tubal ligation History of tonsillectomy Family History Mother Tati-Danlos syndrome Uterine cancer Sister Tati-Danlos syndrome Hemochromatosis Asthma Maternal Grandmother Tati-Danlos syndrome Social History Household Members: Spouse Housing: House Patient Tobacco Use Status: Former Tobacco user Tobacco use type: Cigarette service: No Current occupational status: unemployed Review of Systems Const Denies weight gain and Denies weight loss ENT Reports no additional complaints, Denies dysphagia and Denies odynophagia Card Reports no additional complaints Resp Reports no additional complaints GI Denies abdominal pain, Denies belching, Denies melena, Denies bloating, Denies change in bowel habits, Denies dysphagia, Denies excessive flatus, Denies dyspepsia, Denies heartburn, Denies diarrhea, Denies loose stools, Denies nausea, Denies odynophagia and Denies vomiting Musc Reports no additional complaints Neuro Reports no additional complaints Psych Reports no additional complaints Endo Reports no additional complaints Physical Exam Vital Signs: Last Vital Signs Pulse 82 12/01/24 15:49 BP 128/70 12/01/24 15:49 Pulse Ox 94 12/01/24 15:49 Oxygen Delivery Method Room Air 12/01/24 15:49 BMI result Body Mass Index 19.2 Const General: healthy appearing, no acute distress and well developed Nutritional Appearance: well nourished Orientation/consciousness: patient oriented x3 Resp Effort & Inspection: normal respiratory effort, able to speak in complete sentences, no tracheal deviation and symmetric chest movement Auscultation: clear to auscultation bilaterally Cardio Rate: regular rate GI Inspection: Yes normal to inspection and No distended Palpation (GI): Soft to palpation, not firm, nontender and No hepatosplenomegaly present Auscultation: normal bowel sounds General: Yes no CVA tenderness Back/Spine/Pelvis Back: no CVA tenderness Skin General skin exam: elasticity normal, turgor normal and dry skin Neuro General: patient oriented x3 Psych Appearance: grossly normal Mental Status: mental status grossly normal Assessment & Plan Assessment & Plan (1) Screen for colon cancer: Code(s): Z12.11 - Encounter for screening for malignant neoplasm of colon Plan Patient denies any GI, cardiac or respiratory symptoms.? Denies any issues with anesthesia in the past.? Denies any history of sleep apnea.? No history infectious diseases in the past or present.? Not on any anticoagulation therapy.? Family history of CRC. Patient has hemochromatosis, currently is going for therapeutic blood draws only every 3rd month or so. I do not see any record of ultrasound of her liver. Mildly elevated alk phosphate. Recommend periodically ultrasound.? Patient denies melena, hematochezia, unintentional weight loss or ribbon like stools.? Discussed at length the pre-procedure,? prep, diet & medications as well as what to expect prior, during and after the procedure.?? Stressed the importance of good bowel prep.? Due to patient's multiple allergies we will recommend MiraLax prep only. Patient will do half a MiraLax at 17:00 day before prepping and again at 5 p.m. and 22:00 the day of prepping, the day before procedure. Recommended the use of Vaseline or Calmoseptine OTC & baby wipes with bowel movements to promote comfort.? ?Patient verbalizes understanding and agrees to plan of care.? She was given the opportunity to ask questions and all questions answered.? We will see her after the procedure.? Medications: New polyethylene glycol 3350 (Miralax) As directed by gastro[facility]ology [facility] at [facility] 238 grams PO ONCE 238 grams 1RF Z12.11 - Encounter for screening for malignant neoplasm of colon Coding Level of Care Code New Pt Level 3 (78888) Diagnoses Screen for colon cancer Z12.11 Time Spent (min) 40 Comment 30 minutes spent with patient and additional 10 minutes spent reviewing her records
[2024-12-01 15:49] VITALS: BP 128/70; PULSE 82; O2SAT 94; BMI 19.2
== END 2024-12-01 16:27 | disposition home or self-care (01) ==
LOC: HO.HGI 15:42
PROVIDERS: Visit Provider Nurse Practitioner Family
DX: Z01.818 Encounter for other preprocedural examination (principal); Z12.11 Encounter for screening for malignant neoplasm of colon
CPT/HCPCS: 99203

== ENCOUNTER → 2024-12-01 15:41 | Outpatient (BNVA) | payer MEDICAID, SELFPAY | PROVIDERS: Visit Provider Nurse Practitioner Family | DX: Z01.818 Encounter for other preprocedural examination (principal); E83.110 Hereditary hemochromatosis; Z12.11 Encounter for screening for malignant neoplasm of colon | CPT/HCPCS: 99202 ==